=== PATIENT | male | born 1960 ===

== ENCOUNTER 2017-04-07 20:11 | Inpatient (IN) | payer BC ==
[2017-04-07 21:33] VITALS: BMI 18.1
--- NOTE | 2017-04-07 22:25 | CP.PCM.HP ---
History of Present Illness - History of Present Illness History of Present Illness: PMD: Dr Farooq Chief complaint: SOb/ Right chest and Right arm pain The patient was seen and examined on the TCU unit with his present HPI: Patient sent to the TCU for Continued medical care and physical therapy. He is a 56 years old male with hx of Hypothyroidism, admitted to the [facility] on 03/31/17 with SOB and diagnosed with Large right pleural effusion, Right lung mass, and left Mediastinal shift and multiple foci of litic in vertibral bodies concerning for metastasis. Right Thoracentesis on 04/03/17 removed 3L of fluid and Bronchoscopy with biopsy 04/05/[address] Palafox found a mass completely obstructing the bronchus intermeidus. The Pathology report was of Invasive adenocarcinoma of the lung. The patient refers less pain to the right lateral chest wall and the right upper extremity. PMH: Hypothyroidism; HLD; Right Pleural effusion; Right lung mass; Invasive adenomacarcinoma in lung and pleural fluid; PSH: colonscopy (06/10; resected polyps; right Thoracentesis 04/03/17; Bronchoscopy 04/05/17 FH: Father- prostate cancer, HTN; Mother- HTN, DM Allergies: NKDA Medications: Reviewed Present on Admission - Present on Admission Any Indicators Present on Admission: No History of DVT/PE: No History of Uncontrolled Diabetes: No Urinary Catheter: No Decubitus Ulcer Present: No Review of Systems - Constitutional Constitutional: Anorexia. absent: Chills, Fever, Headache - EENT Eyes: Requires Corrective Lenses. absent: Diplopia, Discharge, Floaters, Loss of Peripheral Vision, Photophobia Ears: absent: Decreased Hearing, Ear Discharge, Ear Pain Nose/Mouth/Throat: absent: Epistaxis, Nasal Congestion, Nasal Discharge, Sinus Pain, Sinus Pressure - Cardiovascular Cardiovascular: absent: Chest Pain, Dyspnea, Leg Edema - Respiratory Respiratory: Dyspnea, Stridor. absent: Cough, Wheezing - Gastrointestinal Gastrointestinal: Nausea. absent: Abdominal Pain, Constipation, Diarrhea, Vomiting - Genitourinary Genitourinary: Dysuria, Flank Pain, Hematuria, Urinary Frequency - Musculoskeletal Additional comments: Pain to the right lateral thoracic wall and upper extremity - Integumentary Integumentary: Pruritus, Rash, Skin Ulcer, Sores, Striae, Swelling - Neurological Neurological: absent: Confusion, Dizziness, Focal Weakness, Restless Legs - Psychiatric Psychiatric: absent: Anxiety, Depression, Panic Attacks - Endocrine Endocrine: absent: Palpitations, Polydipsia, Polyphagia, Polyuria - Hematologic/Lymphatic Hematologic: absent: Easy Bleeding, Easy Bruising Past Patient History - Infectious Disease Hx of Infectious Diseases: None - Past Medical History & Family History Past Medical History?: Yes - Past Social History Smoking Status: Never Smoked Chewing Tobacco Use: No Cigar Use: No Alcohol: None Drugs: Denies Home Situation {Lives}: With Family - CARDIAC Hx Hypercholesterolemia: Yes - PULMONARY Hx Respiratory Disorders: No - NEUROLOGICAL Hx Neurological Disorder: No - HEENT Hx HEENT Problems: No - RENAL Hx Chronic Kidney Disease: No - ENDOCRINE/METABOLIC Hx Hypothyroidism: Yes - HEMATOLOGICAL/ONCOLOGICAL Hx Blood Disorders: No - INTEGUMENTARY Hx Dermatological Problems: No - MUSCULOSKELETAL/RHEUMATOLOGICAL Hx Musculoskeletal Disorders: No Hx Falls: No - GASTROINTESTINAL Hx Gastrointestinal Disorders: No - GENITOURINARY/GYNECOLOGICAL Hx Genitourinary Disorders: No - PSYCHIATRIC Hx Substance Use: No - SURGICAL HISTORY Hx Surgeries: No - ANESTHESIA Hx Anesthesia: Yes Hx Anesthesia Reactions: No Meds Allergies/Adverse Reactions: Allergies Allergy/AdvReac Type Severity Reaction Status Date / Time No Known Allergies Allergy Verified 05/26/16 07:42 Physical Exam - Head Exam Head Exam: ATRAUMATIC - Eye Exam Eye Exam: EOMI, Normal appearance Pupil Exam: NORMAL ACCOMODATION, PERRL - ENT Exam ENT Exam: Mucous Membranes Moist, Normal Exam, Normal External Ear Exam - Neck Exam Neck exam: Positive for: Full Rom, Normal Inspection. Negative for: Lymphadenopathy, Meningismus, Tenderness - Respiratory Exam Additional comments: Decreased breath sounds in the whole right lung field, no rales, wheezes nor rhonchi - Cardiovascular Exam Cardiovascular Exam: REGULAR RHYTHM, RRR, +S1, +S2, Systolic Murmur - GI/Abdominal Exam GI & Abdominal Exam: Soft. absent: Mass, Organomegaly, Tenderness - Rectal Exam Rectal Exam: Deferred - Extremities Exam Extremities exam: Positive for: full ROM, normal inspection. Negative for: calf tenderness, pedal edema - Back Exam Back exam: NORMAL INSPECTION. absent: CVA tenderness (L), CVA tenderness (R) - Neurological Exam Neurological exam: Alert, CN II-XII Intact, Oriented x3, Reflexes Normal - Psychiatric Exam Psychiatric exam: Normal Affect, Normal Mood - Skin Skin Exam: Dry, Intact, Normal Color Results - Imaging and Cardiology CT scan - chest Status: Report reviewed by me Additional comment: Chest CT (03/31): severe right pleural effusion with associated ateletasis/lung collapse; evidence of underlying large heterogenous mass involving medial right lung field and mediastinum ([id number]); significant mediastinal shift to the left; mild pericardial effusion; multiple lytic foci in vertebral bodies concerning for metastatic disease. CT scan - head Status: Report reviewed by me Additional comment: Head CT: no evidence of acute intracranial hemorrhage, mass lesion, mass effect or midline shift Thoracic Spine CT Status: Report reviewed by me Additional comment: Thoracic spine CT: multiple lytic lesions in thoracic spine consistent with metastasis Cervical Spine CT Additional comment: Cervical spine CT: no evidence of destructive bony lesion; small to moderate size osteophyte disc bulge complex at C5-6 associated with mild spinal and neural foraminal narrowing; large right pleural effusion. CT scan - abdomen Status: Report reviewed by me Additional comment: Abdomen/Pelvis CT w/contrast to r/o mets: scattered faint lucent lesions throughout spine and pelvis; faintly visualized sclerotic foci within left sacrum and right ilium. worrisome for metastasis. MRI - head Status: Report reviewed by me Additional comment: Brain MRI with contrast: no evidence of metastasis Assessment & Plan - Assessment and Plan (Free Text) Assessment: #. Right Pleural effusion with lung mass #. Invasive adenocarcinoma of the lung #. Hypothyroidisn #. Anemia #. Pain to the right lateral chest wall and right upper extremity Plan: 56 years old male admitted to the [facility] on 03/31/17 with SOB and diagnosed with Large right pleural effusion, Right lung mass, with left Mediastinal shift and multiple foci of litic vertibral bodies concerning for metastasis. Right Thoracentesis on 04/03/17 removed 3L of fluid and Bronchoscopy with biopsy 04/05/[address] Palafox found a mass completely obstructing the bronchus intermeidus. The Pathology report showed Invasive adenocarcinoma of the lung. #. Right Pleural effusion with lung mass secondary to invasive adenocarcinoma of the lung - Oxygen at 2L/min via Nasal cannula - Incentive Spirometry - To Follow up with Oncology Dr Roque, one week after discharge from TCU - Pain management #. Hypothyroidism - Levothyroxin - TSH 2.09 on 03/31/2017 #. Anemia of chronic disease of malignancy -Follow up with Dr Roque - Follow Hb #. Musculo-Skeletal Pain to the right lateral chest wall and right upper extremity #. Stress ulcer propholaxis with Pepcid - Pain management #. DVT Prophylaxis with Lovenox #. Code Status: Full Follow up with Dr Farooq one week after discharge from TCU - Date & Time Date: 04/07/17 Time: 22:25
[2017-04-08] MEDS: Levothyroxine 25 MCG TAB PO SCH (06:13)
[2017-04-08 06:45] LABS: BASO % 0.3 % (0.0-2.0); EOS # 0.1 K/uL (0.0-0.7); EOS % 0.9 % (0.0-4.0); LYMPH # 1.2 K/uL (1.0-4.3); LYMPH % 10.1 % (20.0-40.0); MEAN CELL VOLUME 87.8 fl (80.0-94.0); MEAN CORPUSCULAR HEMOGLOBIN 28.8 pg (27.0-31.0); MEAN CORPUSCULAR HGB CONC 32.8 g/dL (33.0-37.0); MEAN PLATELET VOLUME 8.2 fl (7.2-11.7); MONO # 1.2 K/uL (0.0-0.8); MONO % 9.5 % (0.0-10.0); NEUT # 9.8 K/uL (1.8-7.0); NEUT % 79.2 % (50.0-75.0); RED CELL DISTRIBUTION WIDTH 13.1 % (11.5-14.5); WHITE BLOOD COUNT 12.4 K/uL (4.8-10.8)
[2017-04-08 07:08] LABS: BLOOD UREA NITROGEN 15 mg/dl (9-20); CALCIUM 8.7 mg/dL (8.4-10.2); CARBON DIOXIDE 33 mmol/L (22-30); CHLORIDE 97 mmol/L (98-107); GFR AFRICAN-AMERICAN > 60; GLUCOSE,RANDOM 109 mg/dL (75-110); POTASSIUM 4.6 MMOL/L (3.6-5.0); SODIUM 135 mmol/l (132-148)
[2017-04-08] MEDS: Enoxaparin 40 mg Syringe SC SCH (09:14)
[2017-04-09] MEDS: Levothyroxine 25 MCG TAB PO SCH (06:02)
[2017-04-09] MEDS: Enoxaparin 40 mg Syringe SC SCH (08:39)
--- NOTE | 2017-04-09 12:22 | CP.PCM.CON ---
History of Present Illness - History of Present Illness History of Present Illness: 56 year old mal e with deconditioning with hypothyroidism, lung CA, pleural effusion, admitted TO tcu Review of Systems - Musculoskeletal Musculoskeletal: Abnormal Gait, Muscle Weakness - Neurological Neurological: Weakness Past Patient History - Infectious Disease Hx of Infectious Diseases: None - Past Medical History & Family History Past Medical History?: Yes - Past Social History Smoking Status: Never Smoked Chewing Tobacco Use: No Cigar Use: No Alcohol: None Drugs: Denies Home Situation {Lives}: With Family - CARDIAC Hx Hypercholesterolemia: Yes - PULMONARY Hx Respiratory Disorders: No - NEUROLOGICAL Hx Neurological Disorder: No - HEENT Hx HEENT Problems: No - RENAL Hx Chronic Kidney Disease: No - ENDOCRINE/METABOLIC Hx Hypothyroidism: Yes - HEMATOLOGICAL/ONCOLOGICAL Hx Blood Disorders: No - INTEGUMENTARY Hx Dermatological Problems: No - MUSCULOSKELETAL/RHEUMATOLOGICAL Hx Musculoskeletal Disorders: No Hx Falls: No - GASTROINTESTINAL Hx Gastrointestinal Disorders: No - GENITOURINARY/GYNECOLOGICAL Hx Genitourinary Disorders: No - PSYCHIATRIC Hx Substance Use: No - SURGICAL HISTORY Hx Surgeries: No - ANESTHESIA Hx Anesthesia: Yes Hx Anesthesia Reactions: No Meds Allergies/Adverse Reactions: Allergies Allergy/AdvReac Type Severity Reaction Status Date / Time No Known Allergies Allergy Verified 05/26/16 07:42 - Medications Medications: Current Medications Enoxaparin Sodium (Lovenox) 40 mg SC DAILY [facility] PRN Reason: Protocol Last Admin: 04/09/17 08:39 Dose: 40 mg Famotidine (Pepcid) 20 mg PO BID [facility] Last Admin: 04/09/17 08:39 Dose: 20 mg Levothyroxine Sodium (Synthroid) 25 mcg PO DAILY@0630 [facility] Last Admin: 04/09/17 06:02 Dose: 25 mcg Metoprolol Tartrate (Lopressor) 12.5 mg PO Q12 [facility] Last Admin: 04/09/17 08:39 Dose: 12.5 mg Ondansetron HCl (Zofran Inj) 4 mg IVP Q4 PRN PRN Reason: Nausea/Vomiting Physical Exam - Head Exam Head Exam: ATRAUMATIC, NORMAL INSPECTION, NORMOCEPHALIC - Eye Exam Eye Exam: EOMI, Normal appearance, PERRL Pupil Exam: NORMAL ACCOMODATION - ENT Exam ENT Exam: Mucous Membranes Moist, Normal Exam - Respiratory Exam Respiratory Exam: NORMAL BREATHING PATTERN - Cardiovascular Exam Cardiovascular Exam: REGULAR RHYTHM - GI/Abdominal Exam GI & Abdominal Exam: Normal Bowel Sounds - Rectal Exam Rectal Exam: NORMAL INSPECTION - Exam External exam: NORMAL EXTERNAL EXAM - Extremities Exam Extremities exam: Positive for: normal inspection - Back Exam Back exam: NORMAL INSPECTION - Neurological Exam Neurological exam: Alert, CN II-XII Intact Additional comments: WEAKNESS GENERALIZED - Psychiatric Exam Psychiatric exam: Normal Affect, Normal Mood - Skin Skin Exam: Dry, Normal Color Results - Vital Signs Recent Vital Signs: Last Vital Signs Temp 97.7 F 04/09/17 08:44 Pulse 104 H 04/09/17 08:44 Resp 20 04/09/17 08:44 BP 113/78 04/09/17 08:44 Pulse Ox 100 04/09/17 08:44 - Labs Result Diagrams: 04/08/17 05:30 04/08/17 05:30 Assessment & Plan (1) Hypothyroidism Assessment and Plan: GENERAL WEAKNESS plan for physical, occupational therapy for range of motion strenghtening transfers and gait training Status: Acute (2) Lung mass Status: Acute Priority: High (3) Prophylactic measure Status: Acute (4) Right upper limb pain Status: Acute Priority: High (5) Generalized weakness Status: Chronic Priority: Medium
[2017-04-10] MEDS: Levothyroxine 25 MCG TAB PO SCH (06:17)
[2017-04-10] MEDS: Enoxaparin 40 mg Syringe SC SCH (08:43)
[2017-04-10 17:18] VITALS: RESP 20
[2017-04-11] MEDS: Levothyroxine 25 MCG TAB PO SCH (06:04)
[2017-04-11] MEDS: Enoxaparin 40 mg Syringe SC SCH (08:47)
--- NOTE | 2017-04-11 13:42 | CP.PCM.PN ---
Subjective - Date & Time of Evaluation Date of Evaluation: 04/10/17 Time of Evaluation: 12:00 - Subjective Subjective: no acute [id number] Objective - Vital Signs/Intake and Output Vital Signs (last 24 hours): Temp Pulse Resp BP Pulse Ox 98.8 F 110 H 20 108/67 98 04/11/17 08:08 04/11/17 08:48 04/11/17 08:08 04/11/17 08:48 04/11/17 08:08 - Medications Medications: Current Medications Acetaminophen (Tylenol 325mg Tab) 650 mg PO Q6 PRN PRN Reason: Fever >100.4 F Last Admin: 04/09/17 16:00 Dose: 650 mg Enoxaparin Sodium (Lovenox) 40 mg SC DAILY [facility] PRN Reason: Protocol Last Admin: 04/11/17 08:47 Dose: 40 mg Famotidine (Pepcid) 20 mg PO BID [facility] Last Admin: 04/11/17 08:49 Dose: 20 mg Levothyroxine Sodium (Synthroid) 25 mcg PO DAILY@0630 [facility] Last Admin: 04/11/17 06:04 Dose: 25 mcg Metoprolol Tartrate (Lopressor) 12.5 mg PO Q12 [facility] Last Admin: 04/11/17 08:48 Dose: 12.5 mg Ondansetron HCl (Zofran Inj) 4 mg IVP Q4 PRN PRN Reason: Nausea/Vomiting - Labs Labs: 04/08/17 05:30 04/08/17 05:30 - Head Exam Head Exam: ATRAUMATIC, NORMAL INSPECTION, NORMOCEPHALIC - Eye Exam Eye Exam: EOMI, Normal appearance, PERRL Pupil Exam: NORMAL ACCOMODATION - ENT Exam ENT Exam: Mucous Membranes Moist, Normal Exam - Neck Exam Neck Exam: Normal Inspection - Respiratory Exam Respiratory Exam: NORMAL BREATHING PATTERN - Cardiovascular Exam Cardiovascular Exam: REGULAR RHYTHM - GI/Abdominal Exam GI & Abdominal Exam: Soft, Normal Bowel Sounds - Rectal Exam Rectal Exam: NORMAL INSPECTION - Exam External exam: NORMAL EXTERNAL EXAM - Extremities Exam Extremities Exam: Normal Capillary Refill, Normal Inspection - Back Exam Back Exam: NORMAL INSPECTION - Neurological Exam Neurological Exam: Alert, Awake Neuro motor strength exam: Left Upper Extremity: 3, Right Upper Extremity: 3, Left Lower Extremity: 3, Right Lower Extremity: 3 - Psychiatric Exam Psychiatric exam: Normal Affect, Normal Mood - Skin Skin Exam: Dry, Intact Assessment and Plan (1) Hypothyroidism Status: Acute (2) Lung mass Status: Acute (3) Prophylactic measure Status: Acute (4) Right upper limb pain Status: Acute (5) Generalized weakness Assessment & Plan: plan for range of motion strenghtneing transfers and gait trainingg ensure to increase weight Status: Chronic
--- NOTE | 2017-04-11 13:44 | CP.PCM.PN ---
Subjective - Date & Time of Evaluation Date of Evaluation: 04/11/17 Time of Evaluation: 10:00 - Subjective Subjective: generalized weakness but no pain Objective - Vital Signs/Intake and Output Vital Signs (last 24 hours): Temp Pulse Resp BP Pulse Ox 98.8 F 110 H 20 108/67 98 04/11/17 08:08 04/11/17 08:48 04/11/17 08:08 04/11/17 08:48 04/11/17 08:08 - Medications Medications: Current Medications Acetaminophen (Tylenol 325mg Tab) 650 mg PO Q6 PRN PRN Reason: Fever >100.4 F Last Admin: 04/09/17 16:00 Dose: 650 mg Enoxaparin Sodium (Lovenox) 40 mg SC DAILY [facility] PRN Reason: Protocol Last Admin: 04/11/17 08:47 Dose: 40 mg Famotidine (Pepcid) 20 mg PO BID [facility] Last Admin: 04/11/17 08:49 Dose: 20 mg Levothyroxine Sodium (Synthroid) 25 mcg PO DAILY@0630 [facility] Last Admin: 04/11/17 06:04 Dose: 25 mcg Metoprolol Tartrate (Lopressor) 12.5 mg PO Q12 [facility] Last Admin: 04/11/17 08:48 Dose: 12.5 mg Ondansetron HCl (Zofran Inj) 4 mg IVP Q4 PRN PRN Reason: Nausea/Vomiting - Labs Labs: 04/08/17 05:30 04/08/17 05:30 - Head Exam Head Exam: ATRAUMATIC, NORMAL INSPECTION, NORMOCEPHALIC - Eye Exam Eye Exam: EOMI, Normal appearance, PERRL Pupil Exam: NORMAL ACCOMODATION - ENT Exam ENT Exam: Mucous Membranes Moist, Normal Exam - Neck Exam Neck Exam: Normal Inspection - Respiratory Exam Respiratory Exam: NORMAL BREATHING PATTERN - Cardiovascular Exam Cardiovascular Exam: REGULAR RHYTHM - GI/Abdominal Exam GI & Abdominal Exam: Soft, Normal Bowel Sounds - Rectal Exam Rectal Exam: NORMAL INSPECTION - Exam External exam: NORMAL EXTERNAL EXAM - Extremities Exam Extremities Exam: Full ROM, Normal Capillary Refill - Back Exam Back Exam: NORMAL INSPECTION - Neurological Exam Neurological Exam: Alert, Awake Neuro motor strength exam: Left Upper Extremity: 3, Right Upper Extremity: 3, Left Lower Extremity: 3, Right Lower Extremity: 3 - Psychiatric Exam Psychiatric exam: Normal Affect, Normal Mood - Skin Skin Exam: Dry, Intact Assessment and Plan (1) Hypothyroidism Status: Acute (2) Lung mass Status: Acute (3) Prophylactic measure Status: Acute (4) Right upper limb pain Status: Acute (5) Generalized weakness Assessment & Plan: continue with physical, and occupational therapy Status: Chronic
--- NOTE | 2017-04-11 16:31 | CP.PCM.PN ---
Subjective - Date & Time of Evaluation Date of Evaluation: 04/11/17 Time of Evaluation: 17:00 - Subjective Subjective: Patient seen and examined bedside. Feeling well. Denies any CP , SOB. Participating with PT. Saturating 100 % in RA % , afebrile. For discharge on Objective - Vital Signs/Intake and Output Vital Signs (last 24 hours): Temp Pulse Resp BP Pulse Ox 98.8 F 110 H 20 108/67 98 04/11/17 08:08 04/11/17 08:48 04/11/17 08:08 04/11/17 08:48 04/11/17 08:08 - Medications Medications: Current Medications Acetaminophen (Tylenol 325mg Tab) 650 mg PO Q6 PRN PRN Reason: Fever >100.4 F Last Admin: 04/09/17 16:00 Dose: 650 mg Enoxaparin Sodium (Lovenox) 40 mg SC DAILY [facility] PRN Reason: Protocol Last Admin: 04/11/17 08:47 Dose: 40 mg Famotidine (Pepcid) 20 mg PO BID [facility] Last Admin: 04/11/17 08:49 Dose: 20 mg Levothyroxine Sodium (Synthroid) 25 mcg PO DAILY@0630 [facility] Last Admin: 04/11/17 06:04 Dose: 25 mcg Metoprolol Tartrate (Lopressor) 12.5 mg PO Q12 [facility] Last Admin: 04/11/17 08:48 Dose: 12.5 mg Ondansetron HCl (Zofran Inj) 4 mg IVP Q4 PRN PRN Reason: Nausea/Vomiting - Labs Labs: 04/08/17 05:30 04/08/17 05:30 - Constitutional Appears: Non-toxic, No Acute Distress, Cachectic - Head Exam Head Exam: ATRAUMATIC, NORMAL INSPECTION, NORMOCEPHALIC - Eye Exam Eye Exam: EOMI, Normal appearance, PERRL Pupil Exam: NORMAL ACCOMODATION - ENT Exam ENT Exam: Mucous Membranes Moist, Normal Exam - Neck Exam Neck Exam: Full ROM, Normal Inspection - Respiratory Exam Respiratory Exam: Decreased Breath Sounds (right hemithorax), Rhonchi (left hemithorax). absent: Accessory Muscle Use, Wheezes, Respiratory Distress - Cardiovascular Exam Cardiovascular Exam: Tachycardia, +S1, +S2. absent: JVD - GI/Abdominal Exam GI & Abdominal Exam: Soft, Normal Bowel Sounds. absent: Distended, Guarding, Tenderness, Rebound - Rectal Exam Rectal Exam: Deferred - Extremities Exam Extremities Exam: Normal Inspection. absent: Calf Tenderness, Pedal Edema - Back Exam Back Exam: NORMAL INSPECTION - Neurological Exam Neurological Exam: Alert, Awake, CN II-XII Intact, Oriented x3 - Psychiatric Exam Psychiatric exam: Normal Affect, Normal Mood - Skin Skin Exam: Dry, Intact, Normal Color, Warm Assessment and Plan - Assessment and Plan (Free Text) Assessment: 56 years old male admitted to [facility] on 03/31/17 with SOB and diagnosed with Large right pleural effusion, Right lung mass, with left Mediastinal shift and multiple foci of lytic vertebral bodies concerning for metastasis. Right Thoracentesis on 04/03/17 removed 3L of fluid and Bronchoscopy with biopsy 04/05/[address] Palafox found a mass completely obstructing the bronchus intermedius. The Pathology report showed Invasive adenocarcinoma of the lung, non small cell Patient transferred to TCU for de conditioning and PT . Participating with PT. Patient for discharge on 1.Right Pleural effusion with lung mass secondary to invasive adenocarcinoma of the lung Oxygen at 2L/min via Nasal cannula continue Incentive Spirometry To Follow up with Oncology Dr Roque, one week after discharge from TCU Pain management 2. Hypothyroidism on Levothyroxin TSH 2.09 on 03/31/2017 3. Anemia of chronic disease of malignancy stable 4.Deconditioning Participated with PT 5. Stress ulcer propholaxis Pepcid Pain management 6. DVT Prophylaxis Lovenox
[2017-04-12] MEDS: Levothyroxine 25 MCG TAB PO SCH (06:08)
[2017-04-12 06:44] LABS: HEMATOCRIT 30.7 % (35.0-51.0); MEAN CELL VOLUME 87.3 fl (80.0-94.0); MEAN CORPUSCULAR HEMOGLOBIN 28.5 pg (27.0-31.0); MEAN CORPUSCULAR HGB CONC 32.6 g/dL (33.0-37.0); RED CELL DISTRIBUTION WIDTH 13.2 % (11.5-14.5); WHITE BLOOD COUNT 12.3 K/uL (4.8-10.8)
[2017-04-12 06:56] LABS: BLOOD UREA NITROGEN 12 mg/dl (9-20); CALCIUM 8.8 mg/dL (8.4-10.2); CARBON DIOXIDE 30 mmol/L (22-30); CHLORIDE 96 mmol/L (98-107); GFR AFRICAN-AMERICAN > 60; GLUCOSE,RANDOM 113 mg/dL (75-110); POTASSIUM 4.3 MMOL/L (3.6-5.0); SODIUM 133 mmol/l (132-148)
[2017-04-12] MEDS: Enoxaparin 40 mg Syringe SC SCH (08:45)
[2017-04-12 16:07] LABS: ABG ALLEN TEST YES; ARTERIAL BLOOD GAS HCO3 29.7 mmol/L (21-28); ARTERIAL BLOOD GAS O2 CAPACITY 19.8 mL/dL (16-24); ARTERIAL BLOOD GAS O2 CONTENT 19.6 ML/dL (15-23); ARTERIAL BLOOD GAS PH 7.51 (7.35-7.45); ARTERIAL BLOOD GAS PO2 136 mm/Hg (80-100); CARBOXYHEMOGLOBIN 1.6 % (0.5-1.5); HHB 0.8 % (0.0-5.0); METHEMOGLOBIN 2.5 % (0.0-3.0)
[2017-04-13] MEDS: Levothyroxine 25 MCG TAB PO SCH (05:48)
[2017-04-13] MEDS: Enoxaparin 40 mg Syringe SC SCH (08:24)
[2017-04-13 08:35] VITALS: O2SAT 100
[2017-04-13 16:02] VITALS: BP 109/66; PULSE 100; TEMP 98.1
--- NOTE | 2017-04-13 17:07 | CP.PCM.DIS ---
Provider - Provider Date of Admission: 04/07/17 22:09 Attending physician: Gage White Primary care physician: Dr. Dylan Farooq Consults: Dr. Ganct- physiatry Time Spent in preparation of Discharge (in minutes): 25 Hospital Course - Lab Results Lab Results: Most Recent Lab Values WBC 12.3 K/uL (4.8-10.8) H 04/12/17 06:15 RBC 3.52 Mil/uL (4.40-5.90) L 04/12/17 06:15 Hgb 10.0 g/dL (12.0-18.0) L 04/12/17 06:15 Hct 30.7 % (35.0-51.0) L 04/12/17 06:15 MCV 87.3 fl (80.0-94.0) 04/12/17 06:15 MCH 28.5 pg (27.0-31.0) 04/12/17 06:15 MCHC 32.6 g/dL (33.0-37.0) L 04/12/17 06:15 RDW 13.2 % (11.5-14.5) 04/12/17 06:15 Plt Count 597 K/uL (130-400) H 04/12/17 06:15 MPV 8.2 fl (7.2-11.7) 04/08/17 05:30 Neut % (Auto) 79.2 % (50.0-75.0) H 04/08/17 05:30 Lymph % (Auto) 10.1 % (20.0-40.0) L 04/08/17 05:30 [place] % (Auto) 9.5 % (0.0-10.0) 04/08/17 05:30 Eos % (Auto) 0.9 % (0.0-4.0) 04/08/17 05:30 Baso % (Auto) 0.3 % (0.0-2.0) 04/08/17 05:30 Neut # 9.8 K/uL (1.8-7.0) H 04/08/17 05:30 Lymph # 1.2 K/uL (1.0-4.3) 04/08/17 05:30 [place] # 1.2 K/uL (0.0-0.8) H 04/08/17 05:30 Eos # 0.1 K/uL (0.0-0.7) 04/08/17 05:30 Baso # 0.0 K/uL (0.0-0.2) 04/08/17 05:30 pCO2 37 mm/Hg (35-45) 04/12/17 15:35 pO2 136 mm/Hg (80-100) H 04/12/17 15:35 HCO3 29.7 mmol/L (21-28) H 04/12/17 15:35 ABG pH 7.51 (7.35-7.45) H 04/12/17 15:35 ABG Total CO2 30.6 mmol/L (22-28) H 04/12/17 15:35 ABG O2 Saturation 99.2 % (95-98) H 04/12/17 15:35 ABG O2 Content 19.6 ML/dL (15-23) 04/12/17 15:35 ABG Base Excess 6.2 mmol/L (-2.0-3.0) H 04/12/17 15:35 ABG Hemoglobin 14.5 g/dL (11.7-17.4) 04/12/17 15:35 ABG Carboxyhemoglobin 1.6 % (0.5-1.5) H 04/12/17 15:35 POC ABG HHb (Measured) 0.8 % (0.0-5.0) 04/12/17 15:35 ABG Methemoglobin 2.5 % (0.0-3.0) 04/12/17 15:35 ABG O2 Capacity 19.8 mL/dL (16-24) 04/12/17 15:35 Joseph Test Yes 04/12/17 15:35 A-a O2 Difference 17.0 mm/Hg 04/12/17 15:35 Hgb O2 Saturation 95.0 % (95.0-98.0) 04/12/17 15:35 FiO2 28.0 % 04/12/17 15:35 Sodium 133 mmol/l (132-148) 04/12/17 06:15 Potassium 4.3 MMOL/L (3.6-5.0) 04/12/17 06:15 Chloride 96 mmol/L (98-107) L 04/12/17 06:15 Carbon Dioxide 30 mmol/L (22-30) 04/12/17 06:15 Anion Gap 11 (10-20) 04/12/17 06:15 BUN 12 mg/dl (9-20) 04/12/17 06:15 Creatinine 0.8 mg/dl (0.8-1.5) 04/12/17 06:15 Est GFR ( Amer) > 60 04/12/17 06:15 Est GFR (Non-Af Amer) > 60 04/12/17 06:15 Random Glucose 113 mg/dL (75-110) H 04/12/17 06:15 Calcium 8.8 mg/dL (8.4-10.2) 04/12/17 06:15 - Hospital Course Hospital Course: This is a 56 year old male with a past medical history of hypothyroidism, who was initially admitted to [facility] on 03/31/2017 with SOB and found to have a large right sided pleural effusion, right sided lung mass, and left mediastinal shift and multiple jeanie foci in vertebral bodies concerning for metastatic disease. A right sided thoracentesis on 04/03/2017 was performed and removed 3 liters of fluid. A bronchoscopy with biopsy was performed on [address] Palafox- a mass was found which was completely obstructing the bronchus intermedius. Pathology reported invasive adenocarcinoma of the lung. The patient was then discharged to transitional care unit at [place] for further care, pain management, physical therapy, reconditioning, and monitoring. In the TCU, the patient had an uncomplicated stay. He regained some of his strength. He continued to be on oxygen 2 liters nasal cannula which he will require at home due to chronic hypoxia. He is to follow up with his oncologist, Dr. Roque, in one week. The patient was discharged to home in stable condition. 1.Right Pleural effusion with lung mass secondary to invasive adenocarcinoma of the lung Oxygen at 2L/min via Nasal cannula at home To Follow up with Oncology Dr Roque, one week after discharge Pain management 2. Hypothyroidism on Levothyroxine, should continue at home TSH 2.09 on 03/31/2017 3. Anemia of chronic disease of malignancy stable 4.Deconditioning Discharge Exam - Additional Findings Additional findings: Physical exam: Constitutional- cooperative, awake, alert. Head- NCAT, PERRL Eye- PERRL, normal accommodation ENT- normal exam, MMM. Neck- normal inspection, supple, no JVD Respiratory- Decreased breath sounds on the right, no wheezes, scattered rhonchi bilaterally Cardiovascular- RRR, +S1, +S2 no MRG GI/Abdominal- normal bowel sounds, soft, no mass, no hsm Skin- warm, dry Extremities Exam- normal capillary refill, normal inspection Neurological Exam- alert, stable gait Psych- normal mood, normal affect Discharge Plan - Discharge Medications Prescriptions: Acetaminophen [Tylenol 325mg tab] 650 mg PO Q6 PRN #60 tab PRN Reason: Fever >100.4 F Levothyroxine [Synthroid] 25 mcg PO DAILY #30 tab Metoprolol Tartrate [Lopressor] 12.5 mg PO Q12 #60 tab - Follow Up Plan Condition: GOOD Disposition: HOME/ ROUTINE Instructions: Using Oxygen at Home (DC), Pleural Effusion (DC), Fall Prevention (DC), Pulse Oximetry (DC) Referrals: Jhonny Palafox MD [Staff Provider] - Dylan Farooq MD [IM] - Mee Small MD [Medical Doctor] -
== END 2017-04-13 16:30 | disposition home health service (06) | DRG 181 ==
LOC: H.TCU 22:09
PROVIDERS: ADMIT Internal Medicine; ATTEND Internal Medicine
PROC: F07Z9FZ Gait Training/Functional Ambulation Treatment using Assistive, Adaptive, Supportive or Protective Equipment (ICD-10-PCS; principal; 2017-04-07)
PROC: F08Z4FZ Home Management Treatment using Assistive, Adaptive, Supportive or Protective Equipment (ICD-10-PCS; 2017-04-07)
PROC: F07K6FZ Therapeutic Exercise Treatment of Musculoskeletal System - Upper Back / Upper Extremity using Assistive, Adaptive, Supportive or Protective Equipment (ICD-10-PCS; 2017-04-08)
DX: C34.01 Malignant neoplasm of right main bronchus (principal); J91.8 Pleural effusion in other conditions classified elsewhere; D63.0 Anemia in neoplastic disease; E03.9 Hypothyroidism, unspecified; E78.5 Hyperlipidemia, unspecified; R26.89 Other abnormalities of gait and mobility; M79.621 Pain in right upper arm